=== PATIENT | female | born 2000 | race Caucasian/White ===

== ENCOUNTER 2025-04-15 14:31 | Outpatient (CLI) | payer OTHER, SELFPAY ==
--- NOTE | ~2025-04-15 | US_ITS ---
EXAMINATION: US OB follow up DATE: 04/15/2025 14:59 INDICATION: Prior incomplete anatomy scan. TECHNIQUE: Real-time ultrasound of the pelvis was performed. The interpreting radiologist was not pre sent for the study. Patient return for additional ultrasound imaging of the heart on 05/01/2025. COMPARISON: None. FINDINGS: There is a single living fetus in vertex presentation. The placenta is anterior. heart rate is 134 beats per minute (bpm). The amniotic fluid index is 15.0 cm, which is normal. (5th%-95%: 8.1-24 .8 cm at 34 weeks estimated gestational age). The following biometric data were obtained: BPD: 8.6 cm -> 34 weeks 5 days Head circumference: 30.5 cm -> 34 weeks 0 days Abdominal circumference: 30.7 cm -> 34 weeks 5 days Femur length: 6.4 cm -> 33 weeks 1 days These measurements are concordant. Head circumference to abdominal circumference ratio: 0.99 (normal range 0.94-1.11). Estimated weight: 2374 g (+/-) 356 g or 5 lbs. 4 oz. (+/-) 13 oz. facial profile is normal. Left ventricular outflow tract, right ventricular outflow tract and f our-chamber heart views are identified. IMPRESSION: 1. Single living fetus in vertex presentation with heart rate of 134 bpm. 2. Normal amniotic fluid index of 15.0 cm. 3. Normal facial profile and heart views. Reviewed, dictated and finalized at location A.
== END 2025-04-15 14:32 | disposition home or self-care (01) ==
LOC: GOSHIMG 14:31
PROVIDERS: PCP Obstetrics & Gynecology; Visit Provider Obstetrics & Gynecology
DX: Z34.93 Encounter for supervision of normal pregnancy, unspecified, third trimester (principal)
CPT/HCPCS: 76816